=== PATIENT | female | born 1995 | race Caucasian/White ===

== ENCOUNTER 2017-07-23 15:03 | Inpatient (IN) | payer BC ==
[~2017-07-23] VITALS: Ht 160 cm; Wt 69.0 kg
[2017-07-23] VITALS (24 sets, daily range): BP systolic 110–136; BP diastolic 59–83
[~2017-07-23 15:03] MED LIST: NO HOME MEDS
[2017-07-23] MEDS ORDERED: CHILD ASPIRIN81 M1 PO (15:47)
[2017-07-23 16:24] LABS: BASOPHIL COUNT 0.1 K/uL (0-0.1); EOSINOPHIL (%) 0.1 % (0-5); IMMATURE GRANULOCYTE (%) 1.2 % (0.0-0.7); IMMATURE GRANULOCYTE COUNT 0.2 K/uL; LYMPHOCYTE COUNT 1.7 K/uL (1.0-2.8); MCH 26.4 PG (29.0-34.0); MCHC 32.3 G/DL (30.0-36.0); MCV 81.8 FL (83-99); MEAN PLAT.VOLUME 10.8 uM^3 (9.5-12.4); MONOCYTE (%) 6.2 % (3-12); MONOCYTE COUNT 0.8 K/uL (0-0.8); NEUTROPHIL (%) 78.8 % (45-76); PLATELET COUNT 303 K/uL (156-360); RBC DIS.WIDTH-CV 15.1 % (11.8-14.6); RED BLOOD COUNT 3.79 M/uL (3.80-5.20); WHITE BLOOD COUNT 12.7 K/uL (4.1-10.2)
[2017-07-23 17:21] LABS: AMPHETAMINE NEGATIVE (500 ng/mL); BARBITURATES NEGATIVE (200 ng/mL); BENZODIAZEPINES NEGATIVE (150 ng/mL); COCAINE NEGATIVE (150 ng/mL); INTERNAL CONTROLS VALID? YES; METHADONE NEGATIVE (200 ng/mL); METHAMPHETAMINE NEGATIVE (500 ng/mL); OPIATES (MORPHINE) NEGATIVE (100 ng/mL); OXYCODONE NEGATIVE (100 ng/mL); PHENCYCLIDINE NEGATIVE (25 ng/mL); PROPOXYPHENE NEGATIVE (300 ng/mL); THC CANNABINOIDS NEGATIVE (50 ng/mL); TRICYCLIC ANTIDEPRESSANTS NEGATIVE (300 ng/mL)
[2017-07-24] VITALS (11 sets, daily range): BP systolic 107–129; BP diastolic 64–87
[2017-07-24] MEDS ORDERED: MOTRIN800 MG PO (01:00)
[2017-07-25 07:51] VITALS: BP 122/89
== END 2017-07-25 08:59 | disposition home or self-care (01) | DRG 775 ==
LOC: LDRP-OP 15:03 → 2WEST 15:04 → LDRP-OP 08-16 12:59
PROVIDERS: Midwife
PROC: 3E0S3BZ Introduction of Anesthetic Agent into Epidural Space, Percutaneous Approach (ICD-10-PCS; 2017-07-23)
PROC: 10E0XZZ Delivery of Products of Conception, External Approach (ICD-10-PCS; principal; 2017-07-24)
DX: O48.0 Post-term pregnancy (principal); O41.03X0 Oligohydramnios, third trimester, not applicable or unspecified; E72.12 Methylenetetrahydrofolate reductase deficiency; O99.324 Drug use complicating childbirth; F33.9 Major depressive disorder, recurrent, unspecified; Z37.0 Single live birth; O99.344 Other mental disorders complicating childbirth; E78.5 Hyperlipidemia, unspecified; G43.909 Migraine, unspecified, not intractable, without status migrainosus; O76 Abnormality in fetal heart rate and rhythm complicating labor and delivery; O99.284 Endocrine, nutritional and metabolic diseases complicating childbirth; F12.10 Cannabis abuse, uncomplicated; F41.9 Anxiety disorder, unspecified; Z83.2 Family history of diseases of the blood and blood-forming organs and certain disorders involving the immune mechanism; Z3A.41 41 weeks gestation of pregnancy; Z87.891 Personal history of nicotine dependence
CPT/HCPCS: 80306 90; 85025; C1755; G0378; J0595; J3010; J7120